=== PATIENT | female | born 1950 | race Caucasian/White ===

== ENCOUNTER 2018-01-08 10:52 | Inpatient (IN) | payer MEDICARE, BC ==
[~2018-01-08] VITALS: Ht 160 cm; Wt 58.4 kg
[2018-01-08] MEDS ORDERED: SODIUM CHLORIDE 0.9% 1,000 ML IV ONE (12:48)
[2018-01-08 12:49] VITALS: BP 156/82
[2018-01-08] MEDS ORDERED: VERAPAMIL 2.5 MG/ML, 2ML ONE (13:45)
[2018-01-08] MEDS ORDERED: HEPARIN 1,000 UNITS/ML, 10ML ONE (13:45)
[2018-01-08] MEDS ORDERED: MIDAZOLAM 1 MG/ML, 5ML ONE (13:45)
[2018-01-08] MEDS ORDERED: LIDOCAINE-MPF 2%, 2ML ONE (13:45)
[2018-01-08] MEDS ORDERED: FENTANYL PF 100 MCG/2ML ONE (13:45)
[2018-01-08] MEDS ORDERED: NITROGLYCERIN 0.4 MG BOTTLE (25 TABS) SL ONE (15:12)
[2018-01-08] MEDS ORDERED: INSULIN LISPRO 100 UNITS/ML, PEN SQ-INSULIN SCH (16:00)
[2018-01-08] MEDS ORDERED: ACETAMINOPHEN 325 MG TABLET PO PRN (16:00)
[2018-01-08] MEDS ORDERED: CHLORHEXIDINE 15 ML UDC MM PRN (16:00)
[2018-01-08] MEDS ORDERED: DIPHENHYDRAMINE 25 MG CAPSULE PO PRN (16:00)
[2018-01-08] MEDS ORDERED: MAGNESIUM HYDROXIDE 8%, 30ML UDC PO PRN (16:00)
[2018-01-08] MEDS ORDERED: PLEASE ENTER ALLERGIES MC SCH (16:00)
[2018-01-08 16:11] LABS: BASOPHILS # (AUTO) 0.03 x10^3/uL (0-0.1); BASOPHILS % (AUTO) 1 % (0-1); EOSINOPHILS % (AUTO) 2 % (1-7); LYMPHOCYTES # (AUTO) 1.69 x10^3/uL (1-3.4); LYMPHOCYTES % (AUTO) 26 % (22-44); MD NO; MEAN CORPUSCULAR HEMOGLOBIN 30.3 pg (27.0-34.8); MEAN CORPUSCULAR HGB CONC 34.2 g/dL (32.4-35.8); MEAN CORPUSCULAR VOLUME 88.4 fL (80-100); MEAN PLATELET VOLUME 9.5 fL (7.4-10.4); MONOCYTES # (AUTO) 0.38 x10^3/uL (0.2-0.8); MONOCYTES % (AUTO) 6 % (2-9); NEUTROPHILS # (AUTO) 4.18 x10^3/uL (1.8-6.8); NEUTROPHILS % (AUTO) 66 % (42-75); PLATELET COUNT 218 x10^3/uL (130-400); RED CELL DISTRIBUTION WIDTH 14.3 % (9.6-15.2)
[2018-01-08 16:19] LABS: ALANINE AMINOTRANSFERASE 25 U/L (12-78); ALBUMIN 3.5 g/dL (3.4-5.0); ANION GAP 7 mmol/L (5-15); CALCIUM 8.3 mg/dL (8.5-10.1); CHLORIDE 107 mmol/L (98-107); CREATININE 0.56 mg/dL (0.55-1.02)
[2018-01-08 16:20] LABS: INTERNATIONAL NORMALIZED RATIO 1.06 (0.93-1.1); PROTHROMBIN TIME 10.9 Seconds (9.6-11.5)
[2018-01-08 16:21] LABS: ALKALINE PHOSPHATASE 87 U/L (45-117); BILIRUBIN,TOTAL 0.6 mg/dL (0.2-1.0); TOTAL PROTEIN 6.8 g/dL (6.4-8.2)
[2018-01-08] MEDS ORDERED: NITROGLYCERIN/D5W PMX 250 ML IV PRN (16:30)
[2018-01-08 16:36] LABS: HEMOGLOBIN A1C 5.6 % (4.2-6.3)
[2018-01-08] MEDS ORDERED: HEPARIN 25,000 UNITS/500ML PMX 500 ML IV PRN (17:00)
[2018-01-08] MEDS ORDERED: HEPARIN 5,000 UNITS/ML, 1ML IV ONE (17:00)
[2018-01-08] MEDS ORDERED: HEPARIN 5,000 UNITS/ML, 1ML IV PRN (17:00)
[2018-01-08 17:18] LABS: MICROSCOPIC NOT IND
[2018-01-08] MEDS: SODIUM CHLORIDE FLUSH 10ML SYR IVF SCH (22:35)
[2018-01-08] MEDS: MUPIROCIN OINT 2%, 22GM TP SCH (23:39)
[2018-01-09] MEDS ORDERED: ALBUMIN HUMAN 5% 500 ML IV PRN (02:30)
[2018-01-09] MEDS ORDERED: METOPROLOL TARTRATE 25 MG TABLET PO ONE (05:00)
[2018-01-09] MEDS ORDERED: HEPARIN 1,000 UNITS/ML, 10ML ONE (06:55)
[2018-01-09] MEDS ORDERED: PAPAVERINE 30 MG/ML, 2ML ONE (06:55)
[2018-01-09] MEDS ORDERED: MANNITOL PMX 20% 500 ML IVPB PRN (07:30)
[2018-01-09] MEDS ORDERED: PHENYLEPHRINE 10 MG in SODIUM CHLORIDE 0.9% 249 ML IV PRN ×2 (07:30→12:14)
[2018-01-09] MEDS ORDERED: EPINEPHRINE 2 MG in SODIUM CHLORIDE 0.9% 248 ML IV SCH (07:30)
[2018-01-09] MEDS ORDERED: VANCOMYCIN 800 MG in SODIUM CHLORIDE 0.9% 100 ML IVPB PRN ×3 (07:30→20:30)
[2018-01-09] MEDS ORDERED: DEXMEDETOMIDINE 200 MCG in SODIUM CHLORIDE 0.9% 48 ML IV SCH (07:30)
[2018-01-09] MEDS ORDERED: POTASSIUM CHLORIDE 80 MEQ, SODIUM BICARBONATE 8.4% 10 MEQ, MAGNESIUM SULFATE 0.5 GM, LI... IV PRN (07:30)
[2018-01-09] MEDS ORDERED: REGULAR INSULIN 62.5 UNITS in SODIUM CHLORIDE 0.9% 249.375 ML IV PRN ×2 (07:30→12:14)
[2018-01-09] MEDS ORDERED: MIDAZOLAM 10MG/2 ML ONE (07:34)
[2018-01-09] MEDS ORDERED: SUFentanil 50 MCG/ML, 5ML ONE (07:35)
[2018-01-09] MEDS ORDERED: HEPARIN 1,000 UNITS/ML, 30ML ONE ×2 (07:42→13:08)
[2018-01-09] MEDS: MUPIROCIN OINT 2%, 22GM TP SCH (09:00)
[2018-01-09] MEDS: DOCUSATE 100 MG CAPSULE PO SCH ×2 (09:00→21:17)
[2018-01-09] MEDS ORDERED: CEFUROXIME 1.5 GM in SODIUM CHLORIDE 0.9% 50 ML IV ONE (09:00)
[2018-01-09] MEDS ORDERED: HEPARIN 1,000 UNITS/ML, 10ML IV ONE (09:33)
[2018-01-09] MEDS ORDERED: PAPAVERINE 30 MG/ML, 2ML IVPush ONE (09:35)
[2018-01-09] MEDS ORDERED: ROCURONIUM 10MG/ML,5ML ONE ×2 (12:06)
[2018-01-09] MEDS ORDERED: AMINOCAPROIC ACID 250 MG/ML, 20ML ONE ×2 (12:06)
[2018-01-09] MEDS ORDERED: PROPOFOL 10 MG/ML, 20ML ONE (12:07)
[2018-01-09] MEDS ORDERED: PROTAMINE SULFATE 10 MG/ML, 25ML ONE (12:07)
[2018-01-09] MEDS ORDERED: NITROGLYCERIN/D5W PMX 250 ML IV PRN (12:14)
[2018-01-09] MEDS ORDERED: DEXMEDETOMIDINE 200 MCG in SODIUM CHLORIDE 0.9% 48 ML IV PRN (12:14)
[2018-01-09] MEDS ORDERED: DOBUTAMINE 250 MG in SODIUM CHLORIDE 0.9% 230 ML IV PRN (12:14)
[2018-01-09] MEDS ORDERED: VASOPRESSIN 50 UNIT in SODIUM CHLORIDE 0.9% 247.5 ML IV PRN (12:14)
[2018-01-09] MEDS ORDERED: SODIUM CHLORIDE 0.9% 1,000 ML IV PRN (12:14)
[2018-01-09] MEDS: KSCALE TO 4.5 IV SCH ×2 (12:30→19:00)
[2018-01-09] MEDS ORDERED: MIDAZOLAM 1 MG/ML, 5ML IVPush PRN (12:30)
[2018-01-09] MEDS ORDERED: BISACODYL 10 MG SUPP PR PRN (12:30)
[2018-01-09] MEDS ORDERED: DEXTROSE 4 GM TAB.CHEW PO PRN (12:30)
[2018-01-09] MEDS ORDERED: ACETAMINOPHEN 325 MG TABLET PO PRN (12:30)
[2018-01-09] MEDS ORDERED: GLUCAGON 1 MG IM PRN (12:30)
[2018-01-09] MEDS ORDERED: INSULIN REGULAR 100 UNITS/ML, 3ML VIAL IVPush PRN (12:30)
[2018-01-09] MEDS ORDERED: ONDANSETRON 2MG/ML, 2ML IVPush PRN (12:30)
[2018-01-09] MEDS ORDERED: PROCHLORPERAZINE 5 MG/ML, 2ML IVPush PRN (12:30)
[2018-01-09] MEDS ORDERED: ACETAMINOPHEN 650 MG SUPP PR PRN (12:30)
[2018-01-09] MEDS ORDERED: SODIUM BICARB 8.4%, 50ML SYRINGE IV PRN (12:30)
[2018-01-09] MEDS ORDERED: VANCOMYCIN 800 MG in SODIUM CHLORIDE 0.9% 250 ML IVPB SCH (12:30)
[2018-01-09] MEDS ORDERED: BISACODYL 5 MG EC TABLET PO PRN (12:30)
[2018-01-09] MEDS ORDERED: DEXTROSE 50%, 50ML SYRINGE IVPush PRN (12:30)
[2018-01-09] MEDS ORDERED: EPINEPHRINE 2 MG in SODIUM CHLORIDE 0.9% 248 ML IV PRN (12:30)
[2018-01-09] MEDS ORDERED: SODIUM BICARBONATE 1 MEQ/ML, 50ML VIAL ONE (13:08)
[2018-01-09] MEDS ORDERED: LIDOCAINE 2% 100MG/5ML SYRINGE ONE (13:08)
[2018-01-09] MEDS ORDERED: ALBUMIN HUMAN 25% 50 ML ONE (13:09)
[2018-01-09 13:10] LABS: GLUCOSE BY BLOOD GAS ANALYZER 88 mg/dL (70-110); HEMOGLOBIN BY BLOOD GAS ANALYZ 10.3 g/dL (14.0-18.0); POTASSIUM BY BLOOD GAS ANALYZR 3.6 mmol/L (3.6-5.5)
[2018-01-09 13:12] LABS: FIO2 40 %
[2018-01-09] MEDS: INSULIN LISPRO 100 UNITS/ML, PEN SQ-INSULIN SCH ×2 (13:46→21:00)
[2018-01-09] MEDS: LACTATED RINGERS 1,000 ML IV PRN ×3 (13:59→20:21)
[2018-01-09] MEDS: SODIUM CHLORIDE FLUSH 10ML SYR IVF SCH ×3 (13:59→21:13)
[2018-01-09] MEDS ORDERED: POTASSIUM CHLORIDE PMX 100 ML IV ONE ×2 (15:00→19:00)
[2018-01-09] MEDS: MAGNESIUM SULFATE 1 GM in SODIUM CHLORIDE 0.9% 50 ML IVPB SCH (15:09)
[2018-01-09] MEDS: OXYcodone IR 5MG TABLET PO PRN ×2 (17:55→18:36)
[2018-01-09] MEDS ORDERED: MORPHINE SULFATE 4 MG/ML, 1ML ONE (20:25)
[2018-01-09] MEDS: morphine SULFATE 10 MG/ML, 1ML IVPush PRN (20:28)
[2018-01-09] MEDS: CHLORHEXIDINE 15 ML UDC PO SCH (21:17)
[2018-01-09] MEDS: MUPIROCIN OINT 2%, 22GM NAS SCH (21:53)
[2018-01-09] MEDS: HYDROcodone/APAP 5/325 TABLET PO PRN (23:23)
[2018-01-10] MEDS: INSULIN LISPRO 100 UNITS/ML, PEN SQ-INSULIN SCH ×6 (00:54→21:09)
[2018-01-10] MEDS: KSCALE TO 4.5 IV SCH ×2 (01:00→07:00)
[2018-01-10] MEDS: morphine SULFATE 10 MG/ML, 1ML IVPush PRN (01:24)
[2018-01-10] MEDS: OXYcodone IR 5MG TABLET PO PRN ×6 (03:06→22:08)
[2018-01-10 05:46] LABS: BASOPHILS % (AUTO) 0 % (0-1); EOSINOPHILS % (AUTO) 0 % (1-7); INTERNATIONAL NORMALIZED RATIO 1.17 (0.93-1.1); LYMPHOCYTES # (AUTO) 0.42 x10^3/uL (1-3.4); LYMPHOCYTES % (AUTO) 3 % (22-44); MD NO; MEAN CORPUSCULAR HEMOGLOBIN 31.1 pg (27.0-34.8); MEAN CORPUSCULAR HGB CONC 35.2 g/dL (32.4-35.8); MEAN CORPUSCULAR VOLUME 88.5 fL (80-100); MEAN PLATELET VOLUME 9.8 fL (7.4-10.4); MONOCYTES # (AUTO) 1.12 x10^3/uL (0.2-0.8); MONOCYTES % (AUTO) 9 % (2-9); NEUTROPHILS # (AUTO) 11.35 x10^3/uL (1.8-6.8); NEUTROPHILS % (AUTO) 88 % (42-75); PLATELET COUNT 132 x10^3/uL (130-400); RED CELL DISTRIBUTION WIDTH 14.4 % (9.6-15.2)
[2018-01-10 05:53] LABS: CHLORIDE 110 mmol/L (98-107)
[2018-01-10 05:59] LABS: ANION GAP 12 mmol/L (5-15); CALCIUM 7.9 mg/dL (8.5-10.1); CREATININE 0.41 mg/dL (0.55-1.02)
[2018-01-10] MEDS ORDERED: POTASSIUM CHLORIDE PMX 100 ML IV ONE (07:30)
[2018-01-10] MEDS: SODIUM CHLORIDE FLUSH 10ML SYR IVF SCH ×4 (07:39→21:06)
[2018-01-10] MEDS: MUPIROCIN OINT 2%, 22GM NAS SCH ×2 (07:39→22:08)
[2018-01-10] MEDS: CHLORHEXIDINE 15 ML UDC PO SCH ×2 (09:34→21:06)
[2018-01-10] MEDS: METOPROLOL TARTRATE 25 MG TABLET PO/NG SCH ×2 (09:34→21:09)
[2018-01-10] MEDS: DOCUSATE 100 MG CAPSULE PO SCH ×2 (09:34→21:07)
[2018-01-10] MEDS: ASPIRIN 81 MG TABLET EC PO SCH (09:34)
[2018-01-10] MEDS: MAGNESIUM SULFATE 1 GM in SODIUM CHLORIDE 0.9% 50 ML IVPB SCH (12:19)
[2018-01-10 18:55] VITALS: BP 150/78
[2018-01-10] MEDS: HYDROcodone/APAP 5/325 TABLET PO PRN ×2 (19:22→23:24)
[2018-01-10] MEDS: ATORVASTATIN 40 MG TABLET PO SCH (21:06)
[2018-01-10 21:12] VITALS: BP 138/73
[2018-01-11] MEDS ORDERED: INSULIN LISPRO 100 UNITS/ML, PEN SQ-INSULIN SCH (01:00)
[2018-01-11] MEDS: INSULIN LISPRO 100 UNITS/ML, PEN SQ-INSULIN SCH ×6 (03:30→23:30)
[2018-01-11 03:32] VITALS: BP 154/76
[2018-01-11] MEDS: HYDROcodone/APAP 5/325 TABLET PO PRN ×5 (03:38→20:38)
[2018-01-11 04:18] LABS: MEAN CORPUSCULAR HEMOGLOBIN 30.6 pg (27.0-34.8); MEAN CORPUSCULAR VOLUME 87.5 fL (80-100); MEAN PLATELET VOLUME 10.6 fL (7.4-10.4); PLATELET COUNT 122 x10^3/uL (130-400); RED BLOOD COUNT 3.78 x10^6/uL (3.82-5.3); RED CELL DISTRIBUTION WIDTH 14.2 % (9.6-15.2)
[2018-01-11 04:23] LABS: ANION GAP 8 mmol/L (5-15); CALCIUM 8.1 mg/dL (8.5-10.1); CHLORIDE 102 mmol/L (98-107)
[2018-01-11 04:25] LABS: CREATININE 0.42 mg/dL (0.55-1.02)
[2018-01-11 04:26] LABS: INTERNATIONAL NORMALIZED RATIO 1.08 (0.93-1.1); PROTHROMBIN TIME 11.1 Seconds (9.6-11.5)
[2018-01-11] MEDS: OXYcodone IR 5MG TABLET PO PRN (05:43)
[2018-01-11 06:05] LABS: MD YES
[2018-01-11 06:07] LABS: BAND#(MANUAL) 0.97 x10^3/uL; BANDS%(MANUAL) 7 % (0-7); LYMPH#(MANUAL) 1.66 x10^3/uL (1-3.4); LYMPHS% (MANUAL) 12 % (22-44); MONOS#(MANUAL) 0.55 x10^3/uL (0.3-2.7); MONOS% (MANUAL) 4 % (2-9); SEG#(MANUAL) 10.63 x10^3/uL (1.8-6.8); SEGS% (MANUAL) 77 % (42-75)
[2018-01-11 06:08] LABS: ANISOCYTOSIS 1+
[2018-01-11 06:10] LABS: <PLATELET ESTIMATE> DECREASED; <PLT MORPHOLOGY> NORMAL PLT MORPH; POLYCHROMASIA 1+
[2018-01-11 07:47] VITALS: BP 151/73
[2018-01-11] MEDS: DOCUSATE 100 MG CAPSULE PO SCH ×2 (08:13→20:38)
[2018-01-11] MEDS: FUROSEMIDE 20 MG/2 ML IV SCH ×2 (08:13→16:24)
[2018-01-11] MEDS: CHLORHEXIDINE 15 ML UDC PO SCH (08:13)
[2018-01-11] MEDS: MUPIROCIN OINT 2%, 22GM NAS SCH ×2 (08:13→20:38)
[2018-01-11] MEDS: ASPIRIN 81 MG TABLET EC PO SCH (08:14)
[2018-01-11] MEDS: METOPROLOL TARTRATE 25 MG TABLET PO/NG SCH ×2 (08:14→20:38)
[2018-01-11] MEDS: LISINOPRIL 5 MG TABLET PO SCH (08:15)
[2018-01-11] MEDS: SODIUM CHLORIDE FLUSH 10ML SYR IVF SCH ×4 (08:17→20:40)
[2018-01-11] MEDS: ENOXAPARIN 40 MG/0.4 ML SQ SCH (08:17)
[2018-01-11 13:17] VITALS: BP 105/67
[2018-01-11] MEDS: MAGNESIUM SULFATE 1 GM in SODIUM CHLORIDE 0.9% 50 ML IVPB SCH (16:24)
[2018-01-11 19:09] VITALS: BP 103/64
[2018-01-11] MEDS: ATORVASTATIN 40 MG TABLET PO SCH (20:38)
[2018-01-12] MEDS: HYDROcodone/APAP 5/325 TABLET PO PRN ×6 (00:34→22:17)
[2018-01-12 02:40] VITALS: BP 114/68
[2018-01-12] MEDS: INSULIN LISPRO 100 UNITS/ML, PEN SQ-INSULIN SCH ×3 (03:30→11:30)
[2018-01-12 05:48] LABS: MEAN CORPUSCULAR HEMOGLOBIN 30.6 pg (27.0-34.8); MEAN CORPUSCULAR HGB CONC 34.5 g/dL (32.4-35.8); MEAN CORPUSCULAR VOLUME 88.6 fL (80-100); PLATELET COUNT 122 x10^3/uL (130-400); RED BLOOD COUNT 3.29 x10^6/uL (3.82-5.3); RED CELL DISTRIBUTION WIDTH 14.4 % (9.6-15.2)
[2018-01-12 05:55] LABS: ANION GAP 8 mmol/L (5-15); CALCIUM 7.9 mg/dL (8.5-10.1); CHLORIDE 99 mmol/L (98-107)
[2018-01-12 05:57] LABS: CREATININE 0.39 mg/dL (0.55-1.02)
[2018-01-12 06:18] LABS: BASOPHILS # (AUTO) 0.03 x10^3/uL (0-0.1); BASOPHILS % (AUTO) 0 % (0-1); EOSINOPHILS # (AUTO) 0.03 x10^3/uL (0-0.4); EOSINOPHILS % (AUTO) 0 % (1-7); LYMPHOCYTES # (AUTO) 0.73 x10^3/uL (1-3.4); LYMPHOCYTES % (AUTO) 8 % (22-44); MD SCAN; MONOCYTES # (AUTO) 0.84 x10^3/uL (0.2-0.8); MONOCYTES % (AUTO) 9 % (2-9); NEUTROPHILS # (AUTO) 7.91 x10^3/uL (1.8-6.8); NEUTROPHILS % (AUTO) 83 % (42-75)
[2018-01-12 08:15] VITALS: BP 118/69
[2018-01-12] MEDS: SODIUM CHLORIDE FLUSH 10ML SYR IVF SCH ×4 (08:20→20:09)
[2018-01-12] MEDS: FUROSEMIDE 20 MG/2 ML IV SCH (08:20)
[2018-01-12] MEDS: MUPIROCIN OINT 2%, 22GM NAS SCH ×2 (08:22→20:05)
[2018-01-12] MEDS: CLOPIDOGREL 75 MG TABLET PO SCH (08:24)
[2018-01-12] MEDS: METOPROLOL TARTRATE 25 MG TABLET PO/NG SCH ×2 (08:24→20:07)
[2018-01-12] MEDS: DOCUSATE 100 MG CAPSULE PO SCH ×2 (08:24→20:05)
[2018-01-12] MEDS: LISINOPRIL 5 MG TABLET PO SCH (08:25)
[2018-01-12] MEDS: ASPIRIN 81 MG TABLET EC PO SCH (08:25)
[2018-01-12] MEDS: ENOXAPARIN 40 MG/0.4 ML SQ SCH (13:34)
[2018-01-12 15:51] VITALS: BP 100/58
[2018-01-12 19:47] VITALS: BP 104/60
[2018-01-12] MEDS: ATORVASTATIN 40 MG TABLET PO SCH (20:05)
[2018-01-13] MEDS ORDERED: AMIODARONE 150 MG in DEXTROSE 5% 100 ML IV ONE (01:00)
[2018-01-13] MEDS ORDERED: AMIODARONE 900 MG in DEXTROSE 5% 482 ML IV PRN (01:00)
[2018-01-13 01:21] VITALS: BP 92/57
[2018-01-13] MEDS ORDERED: FILTER 0.22 MICRON IV PRN (01:30)
[2018-01-13] MEDS: HYDROcodone/APAP 5/325 TABLET PO PRN ×4 (04:37→20:13)
[2018-01-13 05:53] LABS: BASOPHILS # (AUTO) 0.03 x10^3/uL (0-0.1); BASOPHILS % (AUTO) 1 % (0-1); EOSINOPHILS # (AUTO) 0.12 x10^3/uL (0-0.4); EOSINOPHILS % (AUTO) 2 % (1-7); LYMPHOCYTES # (AUTO) 0.79 x10^3/uL (1-3.4); LYMPHOCYTES % (AUTO) 12 % (22-44); MD NO; MEAN CORPUSCULAR HEMOGLOBIN 30.9 pg (27.0-34.8); MEAN CORPUSCULAR HGB CONC 34.8 g/dL (32.4-35.8); MEAN CORPUSCULAR VOLUME 88.8 fL (80-100); MEAN PLATELET VOLUME 9.4 fL (7.4-10.4); MONOCYTES # (AUTO) 0.83 x10^3/uL (0.2-0.8); MONOCYTES % (AUTO) 12 % (2-9); NEUTROPHILS # (AUTO) 5.12 x10^3/uL (1.8-6.8); NEUTROPHILS % (AUTO) 74 % (42-75); PLATELET COUNT 165 x10^3/uL (130-400); RED BLOOD COUNT 3.25 x10^6/uL (3.82-5.3); RED CELL DISTRIBUTION WIDTH 14.2 % (9.6-15.2)
[2018-01-13 06:10] LABS: CALCIUM 7.8 mg/dL (8.5-10.1); CHLORIDE 100 mmol/L (98-107)
[2018-01-13 06:13] LABS: ANION GAP 4 mmol/L (5-15); CREATININE 0.44 mg/dL (0.55-1.02)
[2018-01-13 07:25] VITALS: BP 108/63
[2018-01-13] MEDS: SODIUM CHLORIDE FLUSH 10ML SYR IVF SCH ×4 (09:00→20:16)
[2018-01-13 09:50] VITALS: BP 111/56
[2018-01-13] MEDS: FUROSEMIDE 20 MG/2 ML IV SCH (09:50)
[2018-01-13] MEDS: MAGNESIUM HYDROXIDE 8%, 30ML UDC PO PRN (09:55)
[2018-01-13] MEDS: AMIODARONE 200 MG TABLET PO SCH ×2 (09:56→20:15)
[2018-01-13] MEDS: ASPIRIN 81 MG TABLET EC PO SCH (09:57)
[2018-01-13] MEDS: CLOPIDOGREL 75 MG TABLET PO SCH (09:57)
[2018-01-13] MEDS: LISINOPRIL 5 MG TABLET PO SCH (10:00)
[2018-01-13] MEDS: MUPIROCIN OINT 2%, 22GM NAS SCH ×2 (10:01→20:13)
[2018-01-13] MEDS: DOCUSATE 100 MG CAPSULE PO SCH ×2 (10:01→20:13)
[2018-01-13] MEDS: METOPROLOL TARTRATE 25 MG TABLET PO/NG SCH ×2 (10:17→20:14)
[2018-01-13 12:32] VITALS: BP 118/73
[2018-01-13] MEDS: ENOXAPARIN 40 MG/0.4 ML SQ SCH (14:20)
[2018-01-13 20:00] VITALS: BP 122/69
[2018-01-13] MEDS: ATORVASTATIN 40 MG TABLET PO SCH (20:15)
[2018-01-14] MEDS: HYDROcodone/APAP 5/325 TABLET PO PRN ×5 (00:51→20:41)
[2018-01-14 00:57] VITALS: BP 139/72
[2018-01-14 05:16] LABS: BASOPHILS # (AUTO) 0.03 x10^3/uL (0-0.1); BASOPHILS % (AUTO) 1 % (0-1); EOSINOPHILS # (AUTO) 0.13 x10^3/uL (0-0.4); EOSINOPHILS % (AUTO) 2 % (1-7); LYMPHOCYTES # (AUTO) 0.73 x10^3/uL (1-3.4); LYMPHOCYTES % (AUTO) 12 % (22-44); MD NO; MEAN CORPUSCULAR HEMOGLOBIN 30.7 pg (27.0-34.8); MEAN CORPUSCULAR HGB CONC 34.5 g/dL (32.4-35.8); MEAN CORPUSCULAR VOLUME 89.1 fL (80-100); MEAN PLATELET VOLUME 8.9 fL (7.4-10.4); MONOCYTES # (AUTO) 0.79 x10^3/uL (0.2-0.8); MONOCYTES % (AUTO) 13 % (2-9); NEUTROPHILS # (AUTO) 4.56 x10^3/uL (1.8-6.8); NEUTROPHILS % (AUTO) 73 % (42-75); PLATELET COUNT 210 x10^3/uL (130-400); RED BLOOD COUNT 3.26 x10^6/uL (3.82-5.3); RED CELL DISTRIBUTION WIDTH 14.4 % (9.6-15.2)
[2018-01-14 05:21] LABS: ANION GAP 5 mmol/L (5-15); CALCIUM 7.9 mg/dL (8.5-10.1); CHLORIDE 101 mmol/L (98-107); CREATININE 0.46 mg/dL (0.55-1.02)
[2018-01-14 07:05] VITALS: BP 150/70
[2018-01-14] MEDS: MUPIROCIN OINT 2%, 22GM NAS SCH (08:51)
[2018-01-14] MEDS: ASPIRIN 81 MG TABLET EC PO SCH (08:52)
[2018-01-14] MEDS: SODIUM CHLORIDE FLUSH 10ML SYR IVF SCH ×4 (08:52→20:42)
[2018-01-14] MEDS: CLOPIDOGREL 75 MG TABLET PO SCH (08:52)
[2018-01-14] MEDS: LISINOPRIL 5 MG TABLET PO SCH (08:52)
[2018-01-14] MEDS: DOCUSATE 100 MG CAPSULE PO SCH ×2 (08:53→20:41)
[2018-01-14] MEDS: AMIODARONE 200 MG TABLET PO SCH ×2 (08:53→20:41)
[2018-01-14] MEDS: METOPROLOL TARTRATE 25 MG TABLET PO/NG SCH ×2 (08:53→20:41)
[2018-01-14] MEDS: FUROSEMIDE 20 MG/2 ML IV SCH (08:53)
[2018-01-14] MEDS: MAGNESIUM HYDROXIDE 8%, 30ML UDC PO PRN (08:58)
[2018-01-14] MEDS: ENOXAPARIN 40 MG/0.4 ML SQ SCH (11:50)
[2018-01-14 13:26] VITALS: BP 99/54
[2018-01-14 19:40] VITALS: BP 144/67
[2018-01-14] MEDS: ATORVASTATIN 40 MG TABLET PO SCH (20:41)
[2018-01-15] MEDS: HYDROcodone/APAP 5/325 TABLET PO PRN ×3 (00:43→13:25)
[2018-01-15 02:00] VITALS: BP 148/76
[2018-01-15 05:31] LABS: ANION GAP 4 mmol/L (5-15); CALCIUM 7.8 mg/dL (8.5-10.1); CHLORIDE 101 mmol/L (98-107)
[2018-01-15 05:32] LABS: CREATININE 0.46 mg/dL (0.55-1.02)
[2018-01-15 07:33] VITALS: BP 155/77
[2018-01-15] MEDS: LISINOPRIL 5 MG TABLET PO SCH (07:36)
[2018-01-15] MEDS: ASPIRIN 81 MG TABLET EC PO SCH (07:37)
[2018-01-15] MEDS: CLOPIDOGREL 75 MG TABLET PO SCH (07:37)
[2018-01-15] MEDS: FUROSEMIDE 20 MG/2 ML IV SCH (07:37)
[2018-01-15] MEDS: AMIODARONE 200 MG TABLET PO SCH (07:37)
[2018-01-15] MEDS: SODIUM CHLORIDE FLUSH 10ML SYR IVF SCH ×2 (07:38)
[2018-01-15] MEDS ORDERED: LISINOPRIL 5 MG TABLET PO SCH (09:00)
[2018-01-15] MEDS ORDERED: ATOR40TA78 PO (09:39)
[2018-01-15] MEDS ORDERED: AMIO200T42 PO (09:39)
[2018-01-15] MEDS ORDERED: LISI5TAB7 PO (09:39)
[2018-01-15] MEDS ORDERED: METO25TA35 PO/NG (09:39)
[2018-01-15] MEDS ORDERED: HYDR-3240 PO (09:39)
[2018-01-15] MEDS ORDERED: ASPI-621 PO (09:39)
[2018-01-15] MEDS ORDERED: CLOP75TA PO (09:39)
[2018-01-15] MEDS: DOCUSATE 100 MG CAPSULE PO SCH (10:26)
[2018-01-15] MEDS: METOPROLOL TARTRATE 25 MG TABLET PO/NG SCH (10:27)
== END 2018-01-15 14:00 | disposition home or self-care (01) | DRG 233 ==
LOC: CACL 10:52 → CCU 15:33 → CSU 01-09 07:46 → 5SO 01-10 17:16 → DCLOUNGE 01-15 13:33
PROVIDERS: ADMIT Internal Medicine Cardiovascular Disease; ATTEND Internal Medicine Cardiovascular Disease
PROC: 4A023N7 Measurement of Cardiac Sampling and Pressure, Left Heart, Percutaneous Approach (ICD-10-PCS; principal; 2018-01-08)
PROC: B211YZZ Fluoroscopy of Multiple Coronary Arteries using Other Contrast (ICD-10-PCS; 2018-01-08)
PROC: B2151ZZ Fluoroscopy of Left Heart using Low Osmolar Contrast (ICD-10-PCS; 2018-01-08)
PROC: 06BP4ZZ Excision of Right Saphenous Vein, Percutaneous Endoscopic Approach (ICD-10-PCS; 2018-01-09)
PROC: 02100Z9 Bypass Coronary Artery, One Artery from Left Internal Mammary, Open Approach (ICD-10-PCS; 2018-01-09)
PROC: 5A1221Z Performance of Cardiac Output, Continuous (ICD-10-PCS; 2018-01-09)
PROC: 021009W Bypass Coronary Artery, One Artery from Aorta with Autologous Venous Tissue, Open Approach (ICD-10-PCS; 2018-01-09)
DX: I25.10 Atherosclerotic heart disease of native coronary artery without angina pectoris (principal); I50.31 Acute diastolic (congestive) heart failure; J93.83 Other pneumothorax; J98.11 Atelectasis; I11.0 Hypertensive heart disease with heart failure; I48.91 Unspecified atrial fibrillation; Z87.891 Personal history of nicotine dependence; Z95.1 Presence of aortocoronary bypass graft; R06.03 Acute respiratory distress; Z88.8 Allergy status to other drugs, medicaments and biological substances
CPT/HCPCS: 36415; 36600; 71045; 71046; 80048; 80053; 81003; 82040; 82330; 82800; 82803; 82810; 82947; 82962; 83036; 83735; 84132; 84295; 85014; 85018; 85025; 85049; 85347; 85520; 85610; 85730; 86850; 86900; 86923; 87081; 93005; 93306; 93312; 93321; 93325; 93458; 93880; 93970; 94002; 99156; C1769; C1894; G0378; J0697; J1644; J1650; J1815; J2250; J2405; J2704; J2720; J3010; J3370; J3475; J3480; J3490; P9045; P9047; C1751; J0171; J0282; J1940; J2270; J2370; J2440; J7050; J7060; J7120; Q0163; Q9967